=== PATIENT | male | born 1955 | race Caucasian/White ===

== ENCOUNTER 2016-12-29 08:10 | Emergency (ER) | payer OTHER ==
[~2016-12-29] VITALS: Ht 175.2 cm; Wt 93.0 kg
[2016-12-29] MEDS ORDERED: METOPROLOL SUCC50 M2 PO (08:21)
[2016-12-29] MEDS ORDERED: NEURONTIN300 MG PO (08:22)
[2016-12-29] MEDS ORDERED: ELIQUIS2.5 M1 PO (08:22)
[2016-12-29] MEDS ORDERED: TAMSULOSIN HCL0.4 MG PO (08:23)
[2016-12-29] MEDS ORDERED: NEXIUM40 MG PO (08:24)
[2016-12-29] MEDS ORDERED: MULTAQ400 MG PO (08:24)
[2016-12-29] MEDS ORDERED: Motrin,Rufen800 MG PO (10:15)
== END 2016-12-29 10:38 | disposition home or self-care (01) ==
LOC: ED 08:10
DX: S20.212A Contusion of left front wall of thorax, initial encounter (principal); I48.91 Unspecified atrial fibrillation; Z79.899 Other long term (current) drug therapy; W01.198A Fall on same level from slipping, tripping and stumbling with subsequent striking against other object, initial encounter; Y93.89 Activity, other specified; Y92.89 Other specified places as the place of occurrence of the external cause; Y99.9 Unspecified external cause status

== ENCOUNTER 2017-08-22 16:46 | Inpatient (IN) | payer OTHER ==
[~2017-08-22] VITALS: Ht 175.3 cm; Wt 89.0 kg
--- NOTE | ~2017-08-22 | ST ---
[place], [place] EXERCISE STRESS TEST REPORT [id number] UNIT #: [id number] ROOM: [facility] DOCTOR: DYAN HICKEY,CHINMAY BIRTHDATE: [birth year] DOS: 08/23/2017 LEXISCAN STRESS TEST REASON FOR TEST: Chest pain. REFERRING PHYSICIAN: Dr. Allen. PHYSICAL EXAMINATION NECK: Supple. LUNGS: Clear anteriorly. HEART: Regular rhythm. PROTOCOL: Lexiscan protocol. Maximum heart rate 123, peak blood pressure 135/58. SYMPTOMS: The patient is chest pain free, developed mild nausea. EKG: Resting EKG showed sinus rhythm. Stress EKG showed no ischemia, no arrhythmias. CONCLUSION: Clinically, the patient is chest pain free. EKG, nonischemic. POST-STRESS COMPLICATIONS: None. The patient received a total of 0.4 mg Lexiscan. CHINMAY ZAIDI MD CM:STRESS:EXERCISE STRESS TEST REPORT [id number] CHINMAY ZAIDI MD
--- NOTE | ~2017-08-22 | CON ---
[place], [place] REPORT OF CONSULTATION NAME: LAURA MCCLELLAN UNIT #: [id number] ROOM: 515 DOCTOR: CHINMAY ZAIDI MD BIRTHDATE: [birth year] DOS: 08/23/2017 REASON FOR CONSULTATION: Chest pain. CLINICAL HISTORY: The patient is a 62-year-old gentleman with history of hypertension and paroxysmal atrial fibrillation, came to the Emergency Room for chest pain. His pain started at rest around 1:00 p.m. at home. He also noted to have some heart palpitations that afternoon along with chest pain, but his palpitations resolved clinically, but chest pain was persistent. He describes this as a heaviness feeling in the center of the chest, no radiation. He did have some associated nausea and some vomiting with this pain. He took aspirin prior to coming to the Emergency Room. In the Emergency Room, his blood work was done and he was admitted to the hospital for further management of his chest pains. He did have an ablation about a year ago for the atrial fibrillation, which was unsuccessful per patient. He was on Multaq and Eliquis for his atrial fibrillation. Denies any fever and chills. No diarrhea, no constipation. No bladder or bowel symptoms. No headache. No neurologic symptoms. No musculoskeletal symptoms. He did drink some water at home, but ended up spitting up his water. At the time of examination, the patient is chest pain free. He denies any chest pain, shortness of breath or palpitation, but still had some nausea. REVIEW OF SYSTEMS: Review of the 10 systems negative except as mentioned above. PAST MEDICAL HISTORY: 1. Paroxysmal atrial fibrillation with history of "ablation" in 2017, details unknown. 2. Hypertension. 3. Overweight. 4. Acid reflux. 5. History of supraventricular tachycardia. 6. Benign prostatic hypertrophy. PAST SURGICAL HISTORY: History of atrial fib ablation in 2017. ALLERGIES: The patient has no known drug allergies. HOME MEDICATIONS: Reviewed. Cardiac medications include Multaq and Eliquis. FAMILY HISTORY: Noncontributory. SOCIAL HISTORY: The patient does not smoke, occasionally drinks alcohol. PHYSICAL EXAMINATION: VITAL SIGNS: Blood pressure 131/81, pulse 68, respiratory rate 18, weight 89 kilos. GENERAL: Alert, comfortable, in no acute distress. HEENT: Pupils are round, equal and no jaundice. Tongue was moist and pharynx clear. NECK: Supple, no distended neck veins, no carotid bruit. [place], [place] REPORT OF CONSULTATION NAME: LAURA MCCLELLAN UNIT #: [id number] ROOM: [facility] DOCTOR: DYAN HICKEY,CHINMAY BIRTHDATE: [birth year] CHEST: Symmetrical, nontender. LUNGS: Clear to auscultation bilaterally. HEART: Regular rhythm, no S3, no palpable thrills. ABDOMEN: Benign. Bowel sounds normal. The patient had mild tenderness in the epigastric area. EXTREMITIES: No edema. Distal pulses are palpable. SKIN: Warm and dry. No cyanosis, no clubbing. RECTAL: Deferred. GENITOURINARY: Deferred. NEUROLOGIC: The patient is alert, oriented. No focal neurological deficit. MUSCULOSKELETAL: No joint tenderness or swelling. PSYCHIATRIC: The patient is alert with good mood and affect. REVIEW OF THE DIAGNOSTIC TESTS: EKG shows sinus rhythm with old anteroseptal [place], supraventricular ectopy. CBC, chemistry, labs reviewed, unremarkable. IMPRESSION: 1. Chest pain, atypical, myocardial infarction ruled out. 2. Nausea and vomiting. 3. Paroxysmal atrial fibrillation, currently sinus rhythm. 4. Hypertension. 5. Overweight. RECOMMENDATIONS: The patient scheduled for Lexiscan stress test today due to his chest pain and CAD risk factors. Dr. Negron was consulted for his nausea, vomiting as well. The patient was in sinus rhythm. His heart rate and blood pressure is stable. Continue his Multaq and Eliquis, increase Eliquis to 5 mg twice a day as patient has been taking only once a day. If the stress test is unremarkable, Cardiology will sign off and he will follow with his applications sales consultant, Dr. Brothers at [facility]. Modification of diet, exercise, weight loss was discussed. CHINMAY ZAIDI MD CM:CONSTR:REPORT OF CONSULTATION 08/25/17 [id number]
[~2017-08-22 16:46] MED LIST: ELIQUIS2.5 M1 PO; METOPROLOL SUCC50 M2 PO; MULTAQ400 MG PO; Motrin,Rufen800 MG PO; NEURONTIN300 MG PO; NEXIUM40 MG PO; TAMSULOSIN HCL0.4 MG PO
[2017-08-22 16:54] VITALS: BP 133/91
[2017-08-22 17:00] VITALS: BP 139/88
[2017-08-22 17:12] LABS: BASO # 0.1 10*3/uL (0.0-0.1); EOS # 0.5 10*3/uL (0.0-0.4); EOS % 5.7 % (1.0-4.0); HEMATOCRIT 45.8 % (42.0-52.0); HEMOGLOBIN 15.4 g/dl (14.0-18.0); LYMPH # 2.2 10*3/uL (1.3-4.4); LYMPH % 26.4 % (27.0-41.0); MEAN CORPUSCULAR HGB CONC 33.6 g/dl (33.0-37.0); MEAN PLATELET VOLUME 10.4 fl (9.6-12.3); MONO # 0.6 10*3/uL (0.1-1.0); MONO % 6.9 % (3.0-9.0); NEUT # 4.9 10*3/uL (2.3-7.9); NEUT % 59.8 % (47.0-73.0); PLATELET COUNT AUTOMATED 552 10*3/uL (130-400); RED BLOOD COUNT 4.82 10*6/uL (4.50-5.90); WHITE BLOOD COUNT 8.3 10*3/uL (4.8-10.8)
[2017-08-22 17:15] VITALS: BP 120/79
[2017-08-22 17:20] LABS: ACT PARTIAL THROMBO TIME 27.9 SECONDS (20.8-31.5); INTERNATIONAL NORM RATIO 1.1 (2.0-3.5)
[2017-08-22 17:29] LABS: ALBUMIN 3.9 gm/dl (3.1-4.5); ALKALINE PHOSPHATASE 101 U/L (45-117); BUN 10 mg/dl (7-24); CHLORIDE 108 mmol/L (98-107); CREATININE 0.86 mg/dL (0.70-1.30); POTASSIUM 3.9 mmol/L (3.5-5.1); SGOT/AST 210 IU/L (3-35); SGPT/ALT 313 U/L (12-78); SODIUM 143 mmol/L (136-145); TOTAL PROTEIN 9.9 gm/dL (6.4-8.2)
[2017-08-22 17:30] VITALS: BP 115/78; BP 125/83
[2017-08-22 17:30] LABS: TROPONIN I < 0.015 ng/ml (<0.045)
[2017-08-22 17:50] VITALS: BP 115/78
[2017-08-22 20:13] VITALS: BP 126/79
[2017-08-23] VITALS (10 sets, daily range): BP systolic 112–155; BP diastolic 71–95
[2017-08-23 06:47] LABS: BASO # 0.1 10*3/uL (0.0-0.1); BASO % 0.9 % (0.0-1.0); EOS # 0.2 10*3/uL (0.0-0.4); EOS % 1.6 % (1.0-4.0); HEMATOCRIT 47.4 % (42.0-52.0); HEMOGLOBIN 15.9 g/dl (14.0-18.0); LYMPH # 1.7 10*3/uL (1.3-4.4); LYMPH % 14.5 % (27.0-41.0); MEAN CELL VOLUME 96.1 fl (80.0-94.0); MEAN CORPUSCULAR HGB 32.3 pg (27.0-31.0); MEAN CORPUSCULAR HGB CONC 33.5 g/dl (33.0-37.0); MEAN PLATELET VOLUME 10.6 fl (9.6-12.3); MONO # 0.9 10*3/uL (0.1-1.0); MONO % 7.4 % (3.0-9.0); NEUT # 8.7 10*3/uL (2.3-7.9); NEUT % 75.3 % (47.0-73.0); PLATELET COUNT AUTOMATED 579 10*3/uL (130-400); RED BLOOD COUNT 4.93 10*6/uL (4.50-5.90); RED CELL DISTRI WIDTH 14.3 % (0-14.5); WHITE BLOOD COUNT 11.6 10*3/uL (4.8-10.8)
[2017-08-23 07:06] LABS: ALBUMIN 4.1 gm/dl (3.1-4.5); ALKALINE PHOSPHATASE 92 U/L (45-117); BUN 14 mg/dl (7-24); CHLORIDE 108 mmol/L (98-107); CHOLESTEROL 184 mg/dL (<200); CREATININE 0.87 mg/dL (0.70-1.30); HDL CHOLESTEROL 77 mg/dl (40-60); LDL CHOLESTEROL 92 mg/dL (9-159); PHOSPHOROUS 3.4 mg/dL (2.5-4.9); SGOT/AST 209 IU/L (3-35); SGPT/ALT 307 U/L (12-78); SODIUM 144 mmol/L (136-145); TOTAL PROTEIN 10.2 gm/dL (6.4-8.2); TRIGLYCERIDES 74 mg/dl (<150); VLDL CHOLESTEROL 15 mg/dL (6-40)
[2017-08-23 07:12] LABS: THYROID STIM HORMONE (HS) 0.962 uIU/ml (0.358-4.75)
[2017-08-23 07:36] LABS: VITAMIN D, 25-HYDROXY 36.7 ng/mL (30-100)
[2017-08-24] VITALS: BP 128/75
[2017-08-24 08:00] VITALS: BP 133/91
[2017-08-24 09:11] LABS: HEPATITIS B SURFACE AG Negative (Negative)
[2017-08-24 11:33] VITALS: BP 125/78
[2017-08-26 08:58] LABS: HEPATITIS C VIRUS ANTIBODY >11.0 s/co (0.0-0.9)
== END 2017-08-24 11:57 | disposition home or self-care (01) | DRG 394 ==
LOC: ED 16:46 → EDHOLD 17:05 → 5E 17:05
PROVIDERS: Emergency Medicine; Student in an Organized Health Care Education/Training Program
PROC: 0DC58ZZ Extirpation of Matter from Esophagus, Via Natural or Artificial Opening Endoscopic (ICD-10-PCS; principal; 2017-08-23)
PROC: 4A02XM4 Measurement of Cardiac Total Activity, External Approach (ICD-10-PCS; principal; 2017-08-23)
PROC: 3E073KZ Introduction of Other Diagnostic Substance into Coronary Artery, Percutaneous Approach (ICD-10-PCS; principal; 2017-08-23)
DX: T18.128A Food in esophagus causing other injury, initial encounter (principal); I47.1 Supraventricular tachycardia; K76.0 Fatty (change of) liver, not elsewhere classified; F10.920 Alcohol use, unspecified with intoxication, uncomplicated; R74.0 Nonspecific elevation of levels of transaminase and lactic acid dehydrogenase [LDH]; R13.10 Dysphagia, unspecified; N40.0 Benign prostatic hyperplasia without lower urinary tract symptoms; B19.20 Unspecified viral hepatitis C without hepatic coma; K22.2 Esophageal obstruction; I48.0 Paroxysmal atrial fibrillation; I10 Essential (primary) hypertension; E66.3 Overweight; X58.XXXA Exposure to other specified factors, initial encounter; Y93.89 Activity, other specified; Y92.89 Other specified places as the place of occurrence of the external cause; Y99.8 Other external cause status; Z68.29 Body mass index [BMI] 29.0-29.9, adult; Z79.82 Long term (current) use of aspirin; Z79.01 Long term (current) use of anticoagulants; Z82.49 Family history of ischemic heart disease and other diseases of the circulatory system; Z79.899 Other long term (current) drug therapy; K21.0 Gastro-esophageal reflux disease with esophagitis

== ENCOUNTER → 2017-12-07 | Outpatient (CLI) | payer OTHER ==
[2017-12-07 07:26] LABS: BASO # 0.1 10*3/uL (0.0-0.1); BASO % 1.2 % (0.0-1.0); EOS # 0.4 10*3/uL (0.0-0.4); EOS % 5.8 % (1.0-4.0); HEMATOCRIT 44.9 % (42.0-52.0); HEMOGLOBIN 15.5 g/dl (14.0-18.0); LYMPH # 2.2 10*3/uL (1.3-4.4); LYMPH % 33.7 % (27.0-41.0); MEAN CELL VOLUME 95.7 fl (80.0-94.0); MEAN CORPUSCULAR HGB CONC 34.5 g/dl (33.0-37.0); MEAN PLATELET VOLUME 10.7 fl (9.6-12.3); MONO # 0.7 10*3/uL (0.1-1.0); MONO % 11.4 % (3.0-9.0); NEUT # 3.1 10*3/uL (2.3-7.9); NEUT % 47.7 % (47.0-73.0); PLATELET COUNT AUTOMATED 453 10*3/uL (130-400); RED BLOOD COUNT 4.69 10*6/uL (4.50-5.90); RED CELL DISTRI WIDTH 14.1 % (0-14.5); WHITE BLOOD COUNT 6.4 10*3/uL (4.8-10.8)
[2017-12-07 07:36] LABS: ALBUMIN 3.4 gm/dl (3.1-4.5); ALKALINE PHOSPHATASE 104 U/L (45-117); BUN 7 mg/dl (7-24); CHLORIDE 108 mmol/L (98-107); CHOLESTEROL 163 mg/dL (<200); HDL CHOLESTEROL 66 mg/dl (40-60); LDL CHOLESTEROL 81 mg/dL (9-159); POTASSIUM 3.8 mmol/L (3.5-5.1); SGOT/AST 196 IU/L (3-35); SGPT/ALT 275 U/L (12-78); SODIUM 141 mmol/L (136-145); TOTAL PROTEIN 9.7 gm/dL (6.4-8.2); TRIGLYCERIDES 80 mg/dl (<150); VLDL CHOLESTEROL 16 mg/dL (6-40)
== END | disposition home or self-care (01) ==
LOC: LAB 06:29
PROVIDERS: Family Medicine
DX: Z13.1 Encounter for screening for diabetes mellitus (principal); I48.0 Paroxysmal atrial fibrillation; N40.0 Benign prostatic hyperplasia without lower urinary tract symptoms; Z12.5 Encounter for screening for malignant neoplasm of prostate; Z79.899 Other long term (current) drug therapy

== ENCOUNTER → 2019-02-01 | Outpatient (CLI) | payer OTHER | END | disposition home or self-care (01) | LOC: RAD 09:07 | DX: J40 Bronchitis, not specified as acute or chronic (principal); R05 Cough ==

== ENCOUNTER → 2019-06-01 | Outpatient (CLI) | payer OTHER | END | disposition home or self-care (01) | LOC: US 07:22 | DX: R19.06 Epigastric swelling, mass or lump (principal) ==

== ENCOUNTER → 2019-12-23 | Outpatient (CLI) | payer OTHER | END | disposition home or self-care (01) | LOC: RAD 08:15 | PROVIDERS: ATTEND Nurse Practitioner Primary Care | DX: I70.201 Unspecified atherosclerosis of native arteries of extremities, right leg (principal); M25.511 Pain in right shoulder ==